=== PATIENT | female | born 1935 | race Caucasian/White ===

== ENCOUNTER 2021-03-10 12:06 | Emergency (ER) | payer OTHER, SELFPAY ==
[2021-03-10] VITALS (8 sets, daily range): BP systolic 139–224; BP diastolic 95–113; PULSE 61–78; RESP 16–24; TEMP 36.2; O2SAT 94–98; BMI 23.6
--- NOTE | 2021-03-10 12:49 | ED_ITS ---
HPI - Extremity Injury (Lower) General Chief Complaint: Extremity Injury, Lower Stated Complaint: vertebral procedure 03/05/21, extreme pain in back Time Seen by Provider: 03/10/21 12:12 Source: patient Mode of arrival: Ambulatory Limitations: no limitations History of Present Illness HPI Narrative: Patient is an 85-year-old female who is here for evaluation of lower back discomfort and also bilateral lower extremity numbness. Patient has had a longstanding history of lower back pain. At the end of last week she underwent a spinal epidural steroid injection. Since that time she has had worsening pain. No fevers but now has bilateral lower extremity pain and numbness in her feet. She contacted the operative provider 2 times since she had the injection performed and they told her that she needed to give the injection more time to work and that there was nothing more that they could do for her. She arrives to the emergency department for continued symptoms. Review of Systems Constitutional Constitutional: Denies fever(s) and Denies headache(s) ENT Ears, Nose, Mouth, and Throat: Denies headache(s) Cardiovascular Cardiovascular: Denies chest pain and Denies dyspnea Respiratory Respiratory: Denies dyspnea Musculoskeletal Musculoskeletal: Reports back pain, Reports numbness and Reports radiating pain into limb Integumentary/Breasts Skin/Breast: Denies rash Neurologic Neurologic: Denies headache(s), Reports numbness and Reports paresthesias Hematologic/Lymphatic On Anticoagulants: No Allergic/Immunologic Allergic/Immunologic: Reports system reviewed and no additional complaints, except as documented Patient History Medical History Chronic low back pain Social History Smoking Status: Never smoker Smoking Status: Never smoker alcohol intake frequency: 0-2 drinks per day Substance Use Type: does not use Exam Initial Vital Signs Initial Vital Signs: Vital Signs Temperature 97.2 F L 03/10/21 12:26 Pulse Rate 78 03/10/21 12:26 Respiratory Rate 16 03/10/21 12:26 Blood Pressure 224/111 H 03/10/21 12:26 Pulse Oximetry 98 03/10/21 12:26 Const General: cooperative and comfortable Limitations: mental status not altered HENMT Head: normal to inspection and normocephalic Resp Effort & Inspection: normal respiratory effort Auscultation: clear to auscultation bilaterally Cardio Rate: regular rate Rhythm: regular rhythm Back/Spine/Pelvis Other: Tenderness to palpation midline lumbar and right-sided paraspinal lumbar region Skin General: no rashes or lesions noted Lesions: no lesions Rashes: no rashes Neuro General: patient alert, patient awake and patient oriented x3 Speech: speech normal Other: Patient reports decreased sensation to the L4-5/L5-S1 nerve root distribution bilateral. Extrem General: normal to inspection and capillary refill normal Psych Appearance: grossly normal and well kempt Course Orders Ordered: ED Orders 03/10/21 12:47 MR lumbar spine wo/w con Stat 03/10/21 13:24 Basic Metabolic Panel Stat Complete Blood Count AUTO DIFF Stat Sodium Chloride (Normal Saline 0.9%) 1,000 mls @ 125 mls/hr IV CONT ANNA Last Admin: 03/10/21 13:32 Dose: 125 mls/hr Documented by: MINA Discontinued Medications Diazepam (Diazepam 2 Mg Tablet) 2 mg PO NOW ONE Stop: 03/10/21 14:24 Last Admin: 03/10/21 14:34 Dose: 2 mg Documented by: AVIVA Morphine Sulfate (Morphine 4 Mg/Ml Inj) 4 mg IV NOW ONE Stop: 03/10/21 12:49 Last Admin: 03/10/21 13:32 Dose: 4 mg Documented by: MINA Vital Signs Vital signs: Vital Signs - 8 hr 03/10/21 12:26 03/10/21 13:14 03/10/21 13:26 Temperature 97.2 F L Pulse Rate 78 75 70 Respiratory Rate 16 Blood Pressure 224/111 H 223/113 H Pulse Oximetry 98 97 03/10/21 13:30 03/10/21 14:00 03/10/21 14:30 Temperature Pulse Rate 68 65 61 Respiratory Rate 19 16 Blood Pressure 197/97 H 211/111 H 194/95 H Pulse Oximetry 98 97 94 03/10/21 14:35 03/10/21 16:05 Temperature Pulse Rate 75 Respiratory Rate 24 Blood Pressure 139/95 H Pulse Oximetry 96 MDM - Extremity Injury (Lower) Medical Records Attestation: I reviewed the patient's medical records. Lab Data Attestation: I reviewed the patient's lab results. Result diagrams: 03/10/21 13:24 03/10/21 13:24 Labs: Lab Results 03/10/21 03/10/21 Range/Units 13:24 13:24 WBC 6.8 (4.5-11.0) X10^3/uL RBC 4.00 (4.0-5.2) X10^6/uL Hgb 12.5 (12.0-16.0) g/dL Hct 37.6 (36-46) % MCV 93.9 (80-100) fL MCH 31.2 (26-34) PG MCHC 33.2 (30-36) % RDW 14.0 (11.6-14.8) % Plt Count 235 (150-400) X10^3/uL Neut % (Auto) 51.4 (50-75) % Lymph % (Auto) 33.5 (25-40) % Bertie % (Auto) 10.1 (3-14) % Eos % (Auto) 4.0 (2-4) % Baso % (Auto) 1.0 (0-2) % Neut # (Auto) 3500 (0388-6386) /uL Lymph # (Auto) 2300 (4468-4260) /uL Bertie # (Auto) 700 (0-900) /uL Eos # (Auto) 300 (0-450) /uL Baso # (Auto) 100 (0-100) /uL Sodium 140 (137-145) mmol/L Potassium 4.5 (3.4-5.1) mmol/L Chloride 107 (98-107) mmol/L Carbon Dioxide 26 (22-32) mmol/L BUN 18 H (7-17) mg/dL Creatinine 1.20 H (0.52-1.04) mg/dL Estimated GFR 42.9 L (>60) mL/min BUN/Creatinine Ratio 15.0 (6-22) Glucose 105 (80-110) mg/dL Calcium 9.9 (8.4-10.2) mg/dL Urine Dip Bedside Urine Glucose Negative Bedside Urine Bilirubin - Negative Bedside Urine Ketone - Negative Urine Specific [place] 1.015 Bedside Urine Occult Blood - Negative Bedside Urine pH 6 Bedside Urine Protein - Negative Bedside Urine Urobilinogen - Negative Bedside Urine Nitrite - Negative Bedside Urine Leukocytes - Negative Esterase Imaging Data Lumbar spine MRI: Radiologist's Impression: [address] [id number] Resonance ReportSigned Patient: Beatrice Cortez [facility]#: [id number]: [id number]:[id number]/Sex: 85 / FDate of Service: 03/10/21Loc: EDAccession Number: [id number] Procedure: MR lumbar spine wo/w con Ordering Provider: Trever Tavares D.O. PROCEDURE: MR LUMBAR SPINE WO/W CON INDICATIONS: Spinal injection now with bilateral leg pain weakness TECHNIQUE: Noncontrast sagittal T1 spin echo and T2 fast spin echo, sagittal STIR, axial T1 and T2 fast spin echo through the lumbar spine. In cases with scoliosis, additional coronal T2 fast spin echo may be performed. After the administration of contrast, sagittal and axial T1 spin echo with fat saturation through the lumbar spine. COMPARISON: [facility], CR, XR NO CHARGE 30 MINUTES, 03/05/2021, 15:58. [facility], MR, MR LUMBAR SPINE WITHOUT CONTRAST, 07/02/2020, 7:49. [facility], CR, XR LUMBAR SPINE 2 OR 3 VIEWS, 07/01/2020, 20:59. FINDINGS: Image quality: Excellent. Alignment and curvature: 5 lumbar type vertebral bodies are present by plain film. There is moderate leftward curvature of the lumbar spine. Marrow: Marrow is of normal overall signal. No acute vertebral body compression fractures. No suspicious marrow enhancement. There is mild reactive signal within the endplates adjacent to the L1-L2, L2-L3, L3-L4, and L4-L5 intervertebral discs. Spinal cord: Conus medullaris terminates at the lower L2 level. Visualized spinal cord demonstrates normal signal, without suspicious enhancement. Paraspinous soft tissues: No paravertebral masses or abnormal enhancement. T12-L1: Mild disc height loss and desiccation. No significant canal, or foraminal stenosis. L1-L2: Mild disc desiccation and diffuse disc bulge. Mild canal stenosis. No foraminal stenosis. No significant change. L2-L3: Severe disc height loss and desiccation. Mild diffuse disc bulge. Mild facet and ligamentum flavum hypertrophy. Mild epidural lipomatosis. Mild canal stenosis. Moderate right and mild left foraminal stenosis. No significant change. L3-L4: Mild disc desiccation. Mild diffuse disc bulge. Mild facet and ligamentum flavum hypertrophy. Mild epidural lipomatosis. Mild canal stenosis. Mild bilateral foraminal stenosis. No significant change. L4-L5: Mild disc desiccation and diffuse disc bulge. Mild facet and ligamentum flavum hypertrophy. Mild epidural lipomatosis. Mild canal stenosis. Mild bilateral foraminal stenosis. No significant change. L5-S1: Mild disc height loss and desiccation. Mild diffuse disc bulge. Mild facet and ligamentum flavum hypertrophy. Mild canal stenosis. Mild left greater than right foraminal stenosis. No significant change. IMPRESSION: 1. No acute process. 2. Multilevel degenerative disc and facet disease, as well as ligamentum flavum hypertrophy and epidural lipomatosis. 3. Mild multilevel canal stenosis. 4. Multilevel foraminal stenoses, worst at L2-L3 where there is moderate foraminal stenosis. Dictated by: Guillermo Wilkins M.D. on 03/10/2021 at 15:38 Approved by: Guillermo Wilkins M.D. on 03/10/2021 at 15:43 MDM Narrative Medical decision making narrative: Patient's MRI today does not show any signs of abscess/hematoma. She does see a painter ordnance. Her labs are unremarkable. I feel patient can be discharged home to continue with her pain management regiment at home and also follow the postoperative instructions given to her by the provider who did her injection. She was given return precautions. She expressed understanding and agreement. Discharge Plan Departure Patient Disposition: Home Clinical Impression: Low back pain Instructions: DI for Low Back Pain Activity Restrictions/Additional Instructions: Your MRI today is very reassuring. There is no signs of any surgical nor infectious issue. I recommend that you continue with all of your pain management regiment and all of the postprocedure instructions given to you by the provider who did the injection. Return to the emergency department for any new symptoms Referrals: Starr Rodriguez DO [Primary Care Provider] -
[2021-03-10 13:29] LABS: Add Manual Diff / Slide Review NO; Basophils Absolute Auto 100 /uL (0-100); Eosinophils Absolute Auto 300 /uL (0-450); Hematocrit 37.6 % (36-46); Hemoglobin 12.5 g/dL (12.0-16.0); Lymphocytes Absolute Auto 2300 /uL (1100-4500); Lymphocytes Percent Auto 33.5 % (25-40); Mean Corpuscular HGB Conc 33.2 % (30-36); Mean Corpuscular Hemoglobin 31.2 PG (26-34); Mean Corpuscular Volume 93.9 fL (80-100); Monocytes Absolute Auto 700 /uL (0-900); Monocytes Percent Auto 10.1 % (3-14); Neutrophils Absolute Auto 3500 /uL (1500-7000); Neutrophils Percent Auto 51.4 % (50-75); Platelet Count 235 X10^3/uL (150-400); White Blood Cell Count 6.8 X10^3/uL (4.5-11.0)
[2021-03-10] MEDS: MORPHINE 4 MG/ML INJ IV (13:32)
[2021-03-10] MEDS: SODIUM CHLORIDE 0.9% 1,000 ML 125 ML IV (13:32)
[2021-03-10 13:40] LABS: Blood Urea Nitrogen 18 mg/dL (7-17); Calcium 9.9 mg/dL (8.4-10.2); Carbon Dioxide 26 mmol/L (22-32); Chloride 107 mmol/L (98-107); Estimated Glomerular Filt Rate 42.9 mL/min (>60); Glucose 105 mg/dL (80-110); HEMOLYSIS 17 (0-50); Potassium 4.5 mmol/L (3.4-5.1); Sodium 140 mmol/L (137-145)
[2021-03-10] MEDS: diazePAM 2 MG TABLET PO (14:34)
== END 2021-03-10 16:53 | disposition home or self-care (01) ==
PROVIDERS: Emergency Provider Emergency Medicine; PCP Family Medicine
DX: M54.5 Low back pain (principal); R20.0 Anesthesia of skin
CPT/HCPCS: 36415; 72158; 80048; 81003; 85025; 96361; 96374; 99284; A9579; J2270